=== PATIENT | female | born 1980 | race Caucasian/White ===

== ENCOUNTER 2019-07-31 | Emergency (ER) | payer OTHER ==
--- NOTE | 2019-07-31 19:16 | ER ---
Nurse's Notes [facility] Name: Marci Kapadia Age: 39 yrs Sex: Female : 1980 Arrival Date: 07/31/2019 Time: 18:53 Bed 13 Private MD: Diagnosis: Laceration without foreign body of left thumb with damage to nail Presentation: 07/31 19:01 Chief complaint: Patient states: "I was slicing some potatoes and it got my left aa5 thumb". Coronavirus screen: The patient has NOT traveled to [place] in the past 14 days. The patient has NOT had contact with known and/or suspected case of Coronavirus. Ebola Screen: Patient negative for fever greater than or equal to 101.5 degrees Fahrenheit, and additional compatible Ebola Virus Disease symptoms. Initial Sepsis Screen: Does the patient meet any 2 criteria? No. Patient's initial sepsis screen is negative. Does the patient have a suspected source of infection? No. Patient's initial sepsis screen is negative. Risk Assessment: Do you want to hurt yourself or someone else? Patient reports no desire to harm self or others. 19:01 Method Of Arrival: Ambulatory aa5 19:01 Acuity: BRANDEE 5 aa5 19:15 Onset of symptoms was July 31, 2019. rr5 Historical: - Allergies: 19:02 Sudafed; aa5 - Home Meds: 19:02 None [Active]; aa5 - PMHx: 19:02 None; aa5 - PSHx: 19:02 None; aa5 - Immunization history:: Last tetanus immunization: < 5 years ago. - Social history:: Smoking status: Patient denies any tobacco usage or history of. Screenin:15 Abuse screen: Denies threats or abuse. Denies injuries from another. Nutritional vc screening: No deficits noted. Tuberculosis screening: No symptoms or risk factors identified. Fall Risk None identified. Total Bryson Fall Scale indicates No Risk (0-24 pts). Assessment: 19:15 General: Appears in no apparent distress. comfortable, Behavior is calm, cooperative, rr5 appropriate for age. Pain: Complains of pain in left thumbnail Pain does not radiate. Pain currently is 5 out of 10 on a pain scale. Quality of pain is described as aching, Pain began suddenly, Is intermittent. Neuro: Level of Consciousness is awake, alert, obeys commands, Oriented to person, place, time, situation. Cardiovascular: Capillary refill < 3 seconds Patient's skin is warm and dry. Respiratory: Airway is patent Respiratory effort is even, unlabored, Respiratory pattern is regular, symmetrical. GI: No signs and/or symptoms were reported involving the gastrointestinal system. : No signs and/or symptoms were reported regarding the genitourinary system. EENT: No signs and/or symptoms were reported regarding the EENT system. Derm: Skin is intact, is healthy with good turgor, Skin temperature is warm Wound noted left thumbnail. Musculoskeletal: Circulation, motion, and sensation intact. Capillary refill < 3 seconds. 19:26 Reassessment: Patient appears in no apparent distress at this time. Patient is alert, rr5 oriented x 3, equal unlabored respirations, skin warm/dry/pink. discharge instruction given and explained without complaints made. Vital Signs: 19:03 Pulse 104; Resp 16 S; Temp 99.3(O); Pulse Ox 98% on R/A; Weight 82.55 kg (R); Height 5 aa5 ft. 4 in. (162.56 cm) (R); Pain 6/10; 19:04 BP 124 / 96; aa5 19:03 Body Mass Index 31.24 (82.55 kg, 162.56 cm) aa5 ED Course: 18:53 Patient arrived in ED. mr 19:02 Triage completed. aa5 19:03 [facility]ello [facility]C [facility]. kb 19:03 Andrea Colon MD is Attending Physician. kb 19:03 Arm band placed on. aa5 19:05 Nadeen Singh, FARRAH is Primary Nurse. vc 19:15 Patient has correct armband on for positive identification. Bed in low position. Call vc light in reach. 19:15 No provider procedures requiring assistance completed. Patient did not have IV access vc during this emergency room visit. 19:20 Wound care: to laceration located on left thumbnail was cleaned with Hibiclens, Patient vc tolerated well. Administered Medications: No medications were administered Outcome: 19:15 Discharge ordered by . kb 19:27 Discharged to home ambulatory. vc 19:27 Condition: stable 19:27 Discharge instructions given to patient, Instructed on discharge instructions, follow up and referral plans. Demonstrated understanding of instructions, follow-up care. 19:29 Patient left the ED. rr5 Signatures: Anayeli Tello, MANAS ELEMENTARY INSTRUCTIONAL COACH-Elise Liliana Olson, Ariane, RN RN aa5 James Evans, FARRAH RN rr5 Nadeen Singh, FARRAH RN vc Corrections: (The following items were deleted from the chart) 19:28 19:26 Reassessment: Patient appears in no apparent distress at this time. Patient is rr5 alert, oriented x 3, equal unlabored respirations, skin warm/dry/pink. discharge instruction given and explained without complaints made. vc 19:29 19:15 General: Appears in no apparent distress. comfortable, Behavior is calm, rr5 cooperative, appropriate for age, vc 19:29 19:15 Pain: Complains of pain in left thumbnail Pain does not radiate. Pain currently rr5 is 5 out of 10 on a pain scale. Quality of pain is described as aching, Pain began suddenly, Is intermittent, vc 19:29 19:15 Neuro: Level of Consciousness is awake, alert, obeys commands, Oriented to rr5 person, place, time, situation, vc 19:29 19:15 Cardiovascular: Capillary refill < 3 seconds Patient's skin is warm and dry. vc rr5 19:29 19:15 Respiratory: Airway is patent Respiratory effort is even, unlabored, Respiratory rr5 pattern is regular, symmetrical, vc 19:29 19:15 GI: No signs and/or symptoms were reported involving the gastrointestinal system. rr5 vc 19:29 19:15 : No signs and/or symptoms were reported regarding the genitourinary system. vc rr5 19:29 19:15 EENT: No signs and/or symptoms were reported regarding the EENT system. vc rr5 19:29 19:15 Derm: Skin is intact, is healthy with good turgor, Skin temperature is warm Wound rr5 noted left thumbnail vc 19:29 19:15 Musculoskeletal: Circulation, motion, and sensation intact. Capillary refill < 3 rr5 seconds, vc
--- NOTE | 2019-07-31 19:16 | EDPHYS ---
Physician Documentation [facility] Name: Marci Kapadia Age: 39 yrs Sex: Female : 1980 Arrival Date: 07/31/2019 Time: 18:53 Bed 13 Private MD: ED Physician Andrea Colon HPI: 07/31 19:10 This 39 yrs old Female presents to ER via Ambulatory with complaints of kb Finger Laceration. 19:14 The patient has a laceration related to: cooking, from a knife, occurred at home, and kb there are no complicating factors. The injury was accidental. The laceration(s) is(are) located on the dorsal aspect of distal phalanx of left thumb. Onset: The symptoms/episode began/occurred just prior to arrival. Associated signs and symptoms: The patient has no apparent associated signs or symptoms. The patient has not experienced similar symptoms in the past. The patient has not recently seen a physician. Pt reports she was cutting up potatoes and accidentally cut her thumb. Historical: - Allergies: 19:02 Sudafed; aa5 - Home Meds: 19:02 None [Active]; aa5 - PMHx: 19:02 None; aa5 - PSHx: 19:02 None; aa5 - Immunization history:: Last tetanus immunization: < 5 years ago. - Social history:: Smoking status: Patient denies any tobacco usage or history of. ROS: 19:10 Constitutional: Negative for fever, chills, and weight loss, Neck: Negative for injury, kb pain, and swelling, Cardiovascular: Negative for chest pain, palpitations, and edema, Respiratory: Negative for shortness of breath, cough, wheezing, and pleuritic chest pain, Abdomen/GI: Negative for abdominal pain, nausea, vomiting, diarrhea, and constipation, MS/Extremity: Negative for injury and deformity, Neuro: Negative for headache, weakness, numbness, tingling, and seizure. 19:10 Skin: Positive for laceration(s), of the dorsal aspect of distal phalanx of left thumb. Exam: 19:11 Constitutional: This is a well developed, well nourished patient who is awake, alert, kb and in no acute distress. Head/Face: Normocephalic, atraumatic. Neck: Trachea midline, no thyromegaly or masses palpated, and no cervical lymphadenopathy. Supple, full range of motion without nuchal rigidity, or vertebral point tenderness. No Meningismus. Chest/axilla: Normal chest wall appearance and motion. Nontender with no deformity. No lesions are appreciated. Cardiovascular: Regular rate and rhythm with a normal S1 and S2. No gallops, murmurs, or rubs. Normal PMI, no JVD. No pulse deficits. Respiratory: Lungs have equal breath sounds bilaterally, clear to auscultation and percussion. No rales, rhonchi or wheezes noted. No increased work of breathing, no retractions or nasal flaring. Abdomen/GI: Soft, non-tender, with normal bowel sounds. No distension or tympany. No guarding or rebound. No evidence of tenderness throughout. Skin: Warm, dry with normal turgor. Normal color with no rashes, no lesions, and no evidence of cellulitis. Neuro: Awake and alert, GCS 15, oriented to person, place, time, and situation. Cranial nerves II-XII grossly intact. Motor strength 5/5 in all extremities. Sensory grossly intact. Cerebellar exam normal. Normal gait. 19:11 Musculoskeletal/extremity: Extremities: grossly normal except: noted in the dorsal aspect of distal phalanx of left thumb: laceration, ROM: intact in all extremities, Circulation is intact in all extremities. Sensation intact. Vital Signs: 19:03 Pulse 104; Resp 16 S; Temp 99.3(O); Pulse Ox 98% on R/A; Weight 82.55 kg (R); Height 5 aa5 ft. 4 in. (162.56 cm) (R); Pain 6/10; 19:04 BP 124 / 96; aa5 19:03 Body Mass Index 31.24 (82.55 kg, 162.56 cm) aa5 MDM: 19:04 Patient medically screened. kb 19:11 Data reviewed: vital signs, nurses notes. Data interpreted: Pulse oximetry: on room air kb is 98 %. Interpretation: normal. 19:12 ED course: laceration well approximated, unable to pull skin apart, bleeding kb controlled. . 19:14 Counseling: I had a detailed discussion with the patient and/or guardian regarding: the kb historical points, exam findings, and any diagnostic results supporting the discharge/admit diagnosis, the need for outpatient follow up, a family practitioner, to return to the emergency department if symptoms worsen or persist or if there are any questions or concerns that arise at home. 07/31 19:15 Order name: Wound Care; Complete Time: 19:21 kb Administered Medications: No medications were administered Disposition: 07/31/19 19:15 Discharged to Home. Impression: Laceration without foreign body of left thumb with damage to nail. - Condition is Stable. - Discharge Instructions: Laceration Care, Adult, [id number]. - Medication Reconciliation Form, Thank You Letter, Antibiotic Education, Prescription Opioid Use form. - Follow up: Emergency Department; When: As needed; Reason: Worsening of condition. Follow up: Private Physician; When: 2 - 3 days; Reason: Recheck today's complaints, Continuance of care, Re-evaluation by your physician. Addendum: 08/02/2019 17:51 Co-signature as Attending Physician, Andrea Colon MD I agree with the assessment and c pollock plan of care. Signatures: Anayeli Tello, JOIST SETTER-C JOIST SETTER-Ckb Andrea Colon MD MD cha Calderon, Audri, RN RN aa5 James Evans RN RN rr5 Corrections: (The following items were deleted from the chart) 07/31 19:29 19:15 07/31/2019 19:15 Discharged to Home. Impression: Laceration without foreign body rr5 of left thumb with damage to nail. Condition is Stable. Forms are Medication Reconciliation Form, Thank You Letter, Antibiotic Education, Prescription Opioid Use. Follow up: Emergency Department; When: As needed; Reason: Worsening of condition. Follow up: Private Physician; When: 2 - 3 days; Reason: Recheck today's complaints, Continuance of care, Re-evaluation by your physician. kb
== END 2019-07-31 19:29 | disposition home or self-care (01) ==
CPT/HCPCS: 99283